=== PATIENT | female | born 1965 | race Caucasian/White ===

== ENCOUNTER 2019-03-07 09:42 | Emergency (ER) | payer SELFPAY ==
[2019-03-07 09:56] VITALS: BP 147/85
--- NOTE | 2019-03-07 10:15 | UC ---
Skin Complaint HPI - HPI Summary HPI Summary: 53 female who had a tick crawling on her neck who was just starting to his bed itself and she removed it without difficulty. - History of Current Complaint Chief Complaint: UCSkin Time Seen by Provider: 03/07/19 10:09 Stated Complaint: TICK BITE Hx Obtained From: Patient Hx Last Menstrual Period: unknown ?: No Onset/Duration: Sudden Onset Skin Exposure Onset/Duration: Minutes Ago Onset Severity: Mild Current Severity: None Pain Intensity: 0 Location: Other - Right Side of neck Aggravating Factor(s): Nothing Alleviating Factor(s): Other - Removed the tick on her own it was just starting to become embedded Associated Signs & Symptoms: Positive: Negative Related History: Insect Bite/Sting - Allergy/Home Medications Allergies/Adverse Reactions: Allergies Allergy/AdvReac Type Severity Reaction Status Date / Time Gluten Allergy Intermediate Tiredness Uncoded 03/07/19 09:56 Home Medications: Home Medications Cholecalciferol (Vitamin D3) [Vitamin D3] 1,000 unit PO DAILY 03/07/19 [History Confirmed 03/07/19] Thyroid T3 1 dose PO DAILY 03/07/19 [History Confirmed 03/07/19] PMH/Surg Hx/FS Hx/Imm Hx Previously Healthy: Yes - Surgical History Surgical History: Yes Surgery Procedure, Year, and Place: cyst removal from top of head - Family History Known Family History: Positive: Non-Contributory - Social History Alcohol Use: Weekly Alcohol Amount: 3x's weekly Substance Use Type: None Smoking Status (MU): Former Smoker Type: Cigarettes Amount Used/How Often: 5+ years Have You Smoked in the Last Year: No When Did the Patient Quit Smoking/Using Tobacco: 2003 Review of Systems All Other Systems Reviewed And Are Negative: Yes Skin: Positive: Other - Pinpoint red area where the tick was starting to be embedded Is Patient Immunocompromised?: No Physical Exam Triage Information Reviewed: Yes Appearance: Well-Appearing, No Pain Distress, Well-Nourished Vital Signs: Initial Vital Signs Temp 97.5 F 03/07/19 09:52 Pulse 60 03/07/19 09:52 Resp 16 03/07/19 09:52 BP 147/85 03/07/19 09:52 Pulse Ox 98 03/07/19 09:52 Vital Signs Reviewed: Yes Neck exam: Normal Skin: Positive: Other - Patient has one pinpoint red area on her right neck where the tick was starting to be embedded. Course/Dx - Course Course Of Treatment: This patient had a tick crawling on the right side of her neck which just started to be embedded when she removed it completely. The tick wasn't embedded less than 1 minute. She is not at high risk for developing Lyme disease. - Diagnoses Provider Diagnosis: Tick bite Discharge - Sign-Out/Discharge Documenting (check all that apply): Patient Departure All imaging exams completed and their final reports reviewed: No Studies - Discharge Plan Condition: Good Disposition: HOME Patient Education Materials: Tick Bite (ED) Referrals: Mo VILLAFUERTE,Kadie Osuna [Primary Care Provider] - Additional Instructions: Follow up With your primary care provider as needed. - Billing Disposition and Condition Condition: GOOD Disposition: Home
== END 2019-03-07 10:20 | disposition home or self-care (01) ==
LOC: UCEAST 09:42
DX: S10.96XA Insect bite of unspecified part of neck, initial encounter (principal); W57.XXXA Bitten or stung by nonvenomous insect and other nonvenomous arthropods, initial encounter; Y92.9 Unspecified place or not applicable; Z87.891 Personal history of nicotine dependence
CPT/HCPCS: 99201; G0463